=== PATIENT | female | born 1985 | race African-American/Black ===

== ENCOUNTER 2021-02-24 17:03 | Emergency (ER) | payer MEDICAID ==
[~2021-02-24] VITALS: Ht 154.9 cm; Wt 83.0 kg
[2021-02-24 21:30] VITALS: BP 126/82
[2021-02-24 21:32] LABS: BASOPHILS % 0.8 % (0.0-2.0); EOSINOPHILS % 0.7 % (0.0-5.0); HEMATOCRIT. 36.3 % (36.0-48.0); HEMOGLOBIN. 11.4 g/dL (12.0-16.0); LYMPHOCYTES % 20.1 % (20.0-50.0); MEAN CORPUSCULAR HEMOGLOBIN 24.4 pg (28.0-32.0); MEAN CORPUSCULAR VOLUME 77.2 fL (81.0-99.0); MEAN PLATELET VOLUME 9.4 fl (7.4-10.4); MONOCYTES % 10.2 % (2.0-8.0); NEUTROPHILS % 68.2 % (40.0-76.0); PLATELET 266 x1000/uL (130-400); RED CELL DISTRIBUTION WIDTH 15.3 % (11.6-14.6)
[2021-02-24 21:35] LABS: CHLORIDE 107 mEq/L (98-107)
== END 2021-02-24 21:30 | disposition home or self-care (01) ==
LOC: ER 17:03
DX: O26.93 Pregnancy related conditions, unspecified, third trimester (principal); R06.02 Shortness of breath; R07.89 Other chest pain; Z3A.38 38 weeks gestation of pregnancy
CPT/HCPCS: 36415; 71045; 80053; 84484; 85025; 93005; 93971; 99285